=== PATIENT | male | born 1985 | race Caucasian/White ===

== ENCOUNTER 2016-09-17 07:53 | Emergency (ER) | payer BC ==
[~2016-09-17] VITALS: Ht 190.5 cm; Wt 137.9 kg
[~2016-09-17 07:53] MED LIST: CELEXA20 MG PO; METOPROLOL25 MG PO; TRAMADOL HCL50 MG PO; ZOFRAN4 MG PO
[2016-09-17] MEDS ORDERED: FLUOXETINE HYDR20 M1 PO (07:58)
[2016-09-17] MEDS ORDERED: ZITHROMAX250 MG PO (09:12)
== END 2016-09-17 09:20 | disposition home or self-care (01) ==
LOC: ED 07:53
DX: J40 Bronchitis, not specified as acute or chronic (principal); I10 Essential (primary) hypertension; Z79.899 Other long term (current) drug therapy

== ENCOUNTER → 2017-05-19 | Outpatient (CLI) | payer BC ==
[~2017-05-19] MED LIST changes: +FLUOXETINE HYDR20 M1 PO; +ZITHROMAX250 MG PO
== END | disposition home or self-care (01) ==
LOC: RAD 12:01
DX: M79.672 Pain in left foot (principal)

== ENCOUNTER 2018-04-16 11:01 | Emergency (ER) | payer BC ==
[~2018-04-16] VITALS: Ht 187.9 cm; Wt 129.3 kg
[2018-04-16] MEDS ORDERED: AMOXICILLIN500 M2 PO (11:27)
== END 2018-04-16 11:30 | disposition home or self-care (01) ==
LOC: ED 11:01
DX: H60.92 Unspecified otitis externa, left ear (principal); Z79.899 Other long term (current) drug therapy

== ENCOUNTER 2019-11-28 15:05 | Emergency (ER) | payer BC ==
[~2019-11-28] VITALS: Wt 108.0 kg
[~2019-11-28 15:05] MED LIST changes: +AMOXICILLIN500 M2 PO; +PROVENTIL HFA6.7 GM INH; +TESSALON PERLE100 M1 PO
[2019-11-28 16:46] LABS: BASO % 0.3 % (0.0-1.0); EOS # 0.3 10*3/uL (0.0-0.4); EOS % 4.6 % (1.0-4.0); HEMATOCRIT 41.6 % (42.0-52.0); LYMPH # 1.6 10*3/uL (1.3-4.4); LYMPH % 24.2 % (27.0-41.0); MEAN CELL VOLUME 86.1 fl (80.0-94.0); MEAN CORPUSCULAR HGB 27.7 pg (27.0-31.0); MEAN CORPUSCULAR HGB CONC 32.2 g/dl (33.0-37.0); MEAN PLATELET VOLUME 9.8 fl (9.6-12.3); MONO # 0.5 10*3/uL (0.1-1.0); MONO % 7.4 % (3.0-9.0); NEUT # 4.1 10*3/uL (2.3-7.9); PLATELET COUNT AUTOMATED 223 10*3/uL (130-400); RED BLOOD COUNT 4.83 10*6/uL (4.50-5.90); WHITE BLOOD COUNT 6.5 10*3/uL (4.8-10.8)
[2019-11-28 17:03] LABS: ACT PARTIAL THROMBO TIME 25.1 SECONDS (20.0-32.1); INTERNATIONAL NORM RATIO 0.9 (2.0-3.5)
[2019-11-28 17:05] LABS: ALBUMIN 3.1 gm/dl (3.1-4.5); ALKALINE PHOSPHATASE 59 U/L (45-117); BUN 17 mg/dl (7-24); CHLORIDE 108 mmol/L (98-107); LIPASE 97 U/L (73-393); POTASSIUM 3.8 mmol/L (3.5-5.1); SGOT/AST 17 IU/L (3-35); SGPT/ALT 27 U/L (12-78); SODIUM 141 mmol/L (136-145); TOTAL PROTEIN 6.1 gm/dL (6.4-8.2)
[2019-11-28 17:07] LABS: TROPONIN I < 0.015 ng/ml (<0.045)
[2019-11-28 17:08] LABS: BILIRUBIN 1+ (NEGATIVE); BLOOD TRACE-INTACT (NEGATIVE); CLARITY CLEAR (CLEAR); COLOR YELLOW (YELLOW); GLUCOSE NEGATIVE (NEGATIVE); KETONE NEGATIVE (NEGATIVE); LEUKO ESTERASE NEGATIVE (NEGATIVE); NITRITE NEGATIVE (NEGATIVE); SPECIFIC GRAVITY 1.025 (1.005-1.030); UROBILINOGEN 0.2 E.U./dl (0.2-1.0)
[2019-11-28 17:10] LABS: BACTERIA TRACE
[2019-11-28] MEDS ORDERED: NEXIUM40 MG PO (20:23)
== END 2019-11-28 20:40 | disposition home or self-care (01) ==
LOC: ED 15:05
PROVIDERS: Nurse Practitioner Family
DX: R10.13 Epigastric pain (principal); Z79.899 Other long term (current) drug therapy

== ENCOUNTER 2021-01-24 16:56 | Emergency (ER) | payer BC ==
[~2021-01-24] VITALS: Ht 187.9 cm; Wt 113.4 kg
[~2021-01-24 16:56] MED LIST changes: +NEXIUM40 MG PO
[2021-01-24] MEDS ORDERED: IBUPROFEN600 MG PO (21:06)
[2021-01-24] MEDS ORDERED: HYDROCODONE-AC1 EAC1 PO (21:06)
[2021-01-24] MEDS ORDERED: SILVADENE,SSD C50 GM T (21:06)
== END 2021-01-24 21:30 | disposition home or self-care (01) ==
LOC: ED 16:56
DX: T22.212A Burn of second degree of left forearm, initial encounter (principal); Z79.899 Other long term (current) drug therapy; X13.1XXA Other contact with steam and other hot vapors, initial encounter; Y93.89 Activity, other specified; Y92.89 Other specified places as the place of occurrence of the external cause; Y99.8 Other external cause status